=== PATIENT | female | born 1970 | race Caucasian/White ===

== ENCOUNTER 2020-02-05 10:50 | Outpatient (CLI) | payer BC, SELFPAY ==
--- NOTE | ~2020-02-05 | XR_ITS ---
XR foot LT min 3V DATE: 02/05/2020 11:16 INDICATION: Left foot pain, swelling TECHNIQUE: 4 views COMPARISON: None FINDINGS: Mild hallux valgus and bunion deformity. Mild osteoarthritis at the first metatarsophalangeal joint. No fracture, dislocation, periosteal reaction or bone destruction IMPRESSION: Mild hallux valgus and bunion deformity Mild osteoarthritis at the first metatarsophalangeal joint Reviewed, dictated and finalized at location B. N I FARMWORKER
== END 2020-02-05 10:51 | disposition home or self-care (01) ==
PROVIDERS: PCP Family Medicine; Visit Provider Physician Assistant
DX: M19.072 Primary osteoarthritis, left ankle and foot (principal); M20.12 Hallux valgus (acquired), left foot
CPT/HCPCS: 73630

== ENCOUNTER 2020-03-04 01:51 | Outpatient (CLI) | payer BC, SELFPAY ==
[2020-03-04 20:00] LABS: SARS-CoV-2 RNA PCR Negative
== END 2020-03-04 01:52 | disposition home or self-care (01) ==
LOC: ANHCOVIDDT 01:51
PROVIDERS: PCP Family Medicine; Visit Provider Internal Medicine Gastroenterology
DX: Z01.812 Encounter for preprocedural laboratory examination (principal); Z20.828 Contact with and (suspected) exposure to other viral communicable diseases
CPT/HCPCS: 87635; C9803; U0003

== ENCOUNTER 2020-03-07 01:30 | Day surgery (SDC) | payer BC, SELFPAY ==
[2020-02-29 15:08] VITALS: BMI 45.1
--- NOTE | 2020-03-07 07:06 | WPDANESEPPF ---
Anes - Initial Pre Proc Eval Procedure: Operation Date: 03/07/20 08:00 Proposed Procedures p Screening Colonoscopy - Alvino Saavedra MD Date/Time: 03/07/20 07:06 Surgeon: Alvino Saavedra MD Pre Op Diagnosis: neoplasm screening, family hx colon CA Patient Data Age: 50 Gender: F Height: 1.65 m Weight: 119 kg Allergies Allergy/AdvReac Type Severity Reaction Status Date / Time naproxen Allergy Intermediate Unknown Verified 03/07/20 06:57 doxycycline Allergy Unknown Vomiting Verified 03/07/20 06:57 Penicillins Allergy Unknown unknown Verified 03/07/20 06:57 acetaminophen [From Vicodin] AdvReac Intermediate Vomiting Verified 03/07/20 06:57 hydrocodone [From Vicodin] AdvReac Intermediate Vomiting Verified 03/07/20 06:57 Home Medications Medication Instructions Recorded Confirmed Type sertraline 25 mg tablet 25 mg PO DAILY #90 tablet 01/18/20 02/29/20 Rx Patient hx anesthesia problems: none Family hx anesthesia problems: none PMFSH Past Medical History Medical History (Updated 03/07/20 @ 07:07 by Oli Lyman MD) Generalized anxiety disorder Morbid obesity with BMI of 40.0-44.9, adult Surgical History Surgical History Delivery by section (~1988) Delivery by section (~1996) History of bilateral tubal ligation (~1996) History of renal stent (~2004) History of stress incontinence procedure using tension free vaginal tape (~2007) Hx of cholecystectomy (~1999) Family History Family History Father Family history of glaucoma, Onset Age: 76 Hypertension Family history of elevated blood lipids, Onset Age: 76 Acute myocardial infarction, Onset Age: 76 Family history of malignant neoplasm of esophagus Diabetes mellitus Mother Hypertension Carcinoma of colon Diabetes mellitus Social History Social History Smoking status: Never smoker Alcohol intake: current Substance use type: does not use Living arrangements: with family Gender identity (if verbalized by the patient): Female Sexual Orientation (if Verbalized by the Patient): Straight or Heterosexual Spiritual care concerns: No Anes - Eval Final PreProcedure Day of Procedure 03/07/20 07:06 Patient weight: obese Heart: regular rate and rhythm Lungs: clear to auscultation and normal air movement Airway: Mallampati scale class II Neurological: alert and oriented Last oral intake: >/= 8 hours ASA classification: III Emergent: no Anesthetic plan: proceed Anesthesia type and monitoring: general GIVS Informed Consent: The patient's anesthetic plan and its attendant risks and benefits were discussed with the patient/family/POA. Questions were solicited and answers provided to the satisfaction of the patient/family/POA.
[2020-03-07] MEDS: LACTATED RINGERS 1,000 ML 150 ML IV CONT (07:08)
[2020-03-07 07:15] VITALS: BP 137/64; PULSE 71; RESP 18; TEMP 36.3; O2SAT 98
--- NOTE | 2020-03-07 07:53 | WPDGICN ---
Assessment and Plan Assessment and plan (1) Family history of colon cancer: Code(s): Z80.0 - Family history of malignant neoplasm of digestive organs Status: Acute Assessment and Plan: Patient's family history is significant that her mother had colon cancer for this reason colonoscopy will be performed today and is advised at least every 5 years in the future. Further recommendations may be given after endoscopy. GI Consult Note Consult date/time: 03/07/20 07:53 HPI: Shaila Pineda is a 50 year old female Presents for screening colonoscopy. Patient's family history is significant that her mother had colon cancer. Patient states that her own weight appetite bowel movements are normal. She denies abdominal pain. She has had no bleeding. She is unaware of any other family members that have had polyps. Patient presents today for colonoscopy. Review of Systems Review of Systems: All systems reviewed & are unremarkable except as noted in HPI and below PMFSH Past Medical History Medical History (Updated 03/07/20 @ 07:07 by Oli Lyman MD) Generalized anxiety disorder Morbid obesity with BMI of 40.0-44.9, adult Surgical History Surgical History Delivery by section (~1988) Delivery by section (~1996) History of bilateral tubal ligation (~1996) History of renal stent (~2004) History of stress incontinence procedure using tension free vaginal tape (~2007) Hx of cholecystectomy (~1999) Family History Family History Father Family history of glaucoma, Onset Age: 76 Hypertension Family history of elevated blood lipids, Onset Age: 76 Acute myocardial infarction, Onset Age: 76 Family history of malignant neoplasm of esophagus Diabetes mellitus Mother Hypertension Carcinoma of colon Diabetes mellitus Social History Social History Smoking status: Never smoker Alcohol intake: current Substance use type: does not use Living arrangements: with family Gender identity (if verbalized by the patient): Female Sexual Orientation (if Verbalized by the Patient): Straight or Heterosexual Spiritual care concerns: No Meds Home Medications and Allergies Home Medications Medication Instructions Recorded Confirmed Type sertraline 25 mg tablet 25 mg PO DAILY #90 tablet 01/18/20 02/29/20 Rx Allergies Allergy/AdvReac Type Severity Reaction Status Date / Time naproxen Allergy Intermediate Unknown Verified 03/07/20 06:57 doxycycline Allergy Unknown Vomiting Verified 03/07/20 06:57 Penicillins Allergy Unknown unknown Verified 03/07/20 06:57 acetaminophen [From Vicodin] AdvReac Intermediate Vomiting Verified 03/07/20 06:57 hydrocodone [From Vicodin] AdvReac Intermediate Vomiting Verified 03/07/20 06:57 Vital Signs Vital Signs - 24 hr 03/07/20 07:15 Temperature 97.3 F L Pulse Rate 71 Respiratory Rate 18 Blood Pressure 137/64 Pulse Oximetry 98 Exam Narrative: Exam Narrative: Physical exam reveals patient to be alert. Vital signs stable. HEENT exam is unremarkable. Lungs are clear to auscultation and percussion. Heart is without murmur or extra sounds. Abdominal exam bowel sounds are present soft nontender with no hepatosplenomegaly digital external rectal exam is normal.
[2020-03-07 08:14] VITALS: BP 84/45; PULSE 77; RESP 20; O2SAT 98
[2020-03-07 08:24] VITALS: BP 100/89; PULSE 77; RESP 19; O2SAT 98
[2020-03-07 08:34] VITALS: BP 106/76; PULSE 78; RESP 19; O2SAT 99
== END 2020-03-07 10:24 | disposition home or self-care (01) ==
PROVIDERS: PCP Family Medicine; Visit Provider Internal Medicine Gastroenterology
PROC: 0DJD8ZZ Inspection of Lower Intestinal Tract, Via Natural or Artificial Opening Endoscopic (ICD-10-PCS; CPT 45378; principal; 2020-03-07 08:00)
DX: Z12.11 Encounter for screening for malignant neoplasm of colon (principal); K64.8 Other hemorrhoids; Z80.0 Family history of malignant neoplasm of digestive organs; F41.1 Generalized anxiety disorder; E66.01 Morbid (severe) obesity due to excess calories; Z68.41 Body mass index [BMI] 40.0-44.9, adult
CPT/HCPCS: 45378; J2704; J7120

== ENCOUNTER 2020-04-23 10:29 | Outpatient (CLI) | payer BC, SELFPAY ==
--- NOTE | ~2020-04-23 | MR_ITS ---
EXAMINATION: MR ankle LT wo con DATE: 04/23/2020 11:28 INDICATION: Peroneal tendinopathy of left ankle. TECHNIQUE: Magnetic resonance imaging (MRI) of the left ankle was performed without intravenous contr ast. Sequences included sagittal PD-weighted FS FSE, sagittal PD-weighted FSE, coronal PD-weighted FS FSE, coronal PD-weighted FSE, axial PD-weighted FS FSE, and axial PD-weighted FSE. COMPARISON: Left foot radiographs 02/05/2020 FINDINGS: Medial ankle ligaments: The superficial and deep components of the deltoid ligament are intact. Lateral ankle ligaments: The anterior and posterior tibiofibular ligaments, calcaneofibular ligament, and anterior and posteri or tibiofibular ligaments are normal. Tendons: The medial and anterior ankle tendons are normal. There is mild peroneus longus tendinopathy. Magic-a ngle artifact obscures evaluation of distal peroneus brevis tendon. There is mild Achilles tendinopat hy. Plantar fascia: There is thickening of central band of plantar fascia, consistent with fasciitis. Bones/other: Bone alignment is normal. Talar dome is normal. There is mild osteoarthritis of calcaneocuboid joint. Fluid: There is no joint effusion. There is subcutaneous edema at the medial and lateral aspects of the ankl e. There is a 9 mm ganglion cyst dorsal to third and fourth metatarsals. IMPRESSION: 1. Mild peroneus longus tendinopathy. 2. 9 mm ganglion cyst dorsal to third and fourth metatarsals. 3. Mild osteoarthritis of calcaneocuboid joint. Reviewed, dictated and finalized at location A. GRADER
== END 2020-04-23 10:30 ==
PROVIDERS: PCP Family Medicine; Visit Provider Podiatrist Foot & Ankle Surgery
DX: M67.472 Ganglion, left ankle and foot (principal); M19.072 Primary osteoarthritis, left ankle and foot
CPT/HCPCS: 73721

== ENCOUNTER 2022-03-06 07:14 | Outpatient (CLI) | payer OTHER, SELFPAY ==
--- NOTE | ~2022-03-06 | MM_ITS ---
EXAMINATION: MM screening bart BI w nicholas HISTORY: Screening TECHNIQUE: Craniocaudal and mediolateral oblique 3-D tomosynthesis images were obtained and synthetic 2-D images were generated. CAD analysis was submitted and interpreted. COMPARISON: No prior mammogram is available for comparison at this institution. BREAST PARENCHYMAL COMPOSITION: There are scattered areas of fibroglandular density. FINDINGS: There is no mammographic evidence for malignancy in the right breast. There is a circumscri bed 9 mm mass in the upper central aspect of the left breast with a single associated punctate calcif ication. IMPRESSION: 1. Left breast mass in the upper central breast, middle third. 2. Additional mammographic views and possible breast ultrasound are recommended. BI-RADS Category 0: Incomplete: Needs additional imaging evaluation. Reviewed, dictated and finalized at location A. DRIVER IMPRESSION: 1. Left breast mass in the upper central breast, middle third. 2. Additional mammographic views and possible breast ultrasound are recommended . BI-RADS Category 0: Incomplete: Needs additional imaging evaluation.
== END 2022-03-06 07:15 | disposition home or self-care (01) ==
LOC: ANHIMG 07:15
PROVIDERS: PCP Family Medicine; Visit Provider Family Medicine
DX: Z12.31 Encounter for screening mammogram for malignant neoplasm of breast (principal); R92.8 Other abnormal and inconclusive findings on diagnostic imaging of breast
CPT/HCPCS: 77063; 77067

== ENCOUNTER 2022-03-21 12:03 | Outpatient (CLI) | payer OTHER, SELFPAY ==
[2022-03-21 14:30] LABS: Hepatitis B Surface Antigen Negative (Negative)
[2022-03-21 14:36] LABS: HAV RESULT Negative (Negative); Hepatitis B Core IgM Result Negative (Negative)
[2022-03-21 14:40] LABS: HIV 1/2 Ab P24 Ag Result Negative (Negative)
[2022-03-21 14:47] LABS: Hepatitis C Virus Antibody Negative (Negative)
== END 2022-03-21 12:04 | disposition home or self-care (01) ==
LOC: ANHGOSHLAB 12:52
PROVIDERS: PCP Family Medicine; Visit Provider Nurse Practitioner
DX: Z57.8 Occupational exposure to other risk factors (principal)
CPT/HCPCS: 36415; 80074; 86703; G0432

== ENCOUNTER 2022-03-29 13:41 | Outpatient (CLI) | payer OTHER, SELFPAY ==
--- NOTE | ~2022-03-29 | MMUS_ITS ---
EXAMINATION: MM diagnostic bart LT w nicholas, US breast LT limited HISTORY: Follow-up left breast mass TECHNIQUE: Additional 3-D tomosynthesis images of the left breast were performed and synthetic 2-D im ages were generated. CAD analysis was submitted and interpreted. High resolution left breast ultrasou nd was performed. COMPARISON: Comparison to multiple prior studies sequentially, with oldest reviewed study dated 06/2015. BREAST PARENCHYMAL COMPOSITION: Breast composed of scattered areas of fibroglandular density FINDINGS: MAMMOGRAPHIC FINDINGS: There is a 9 mm circumscribed mass in the upper central aspect of the left breast, middle third. Ther e are no suspicious calcifications or architectural distortion. ULTRASOUND: Limited left breast ultrasound: At 1:00, 7 cm from the nipple, there is an 8 mm simple cyst correspon ding to the mammographic abnormality. No suspicious sonographic abnormalities to suggest malignancy. IMPRESSION: 1. No evidence for malignancy in the left breast. Benign finding. 2. Routine yearly screening mammogram and regular clinical breast examination are recommended. BI-RADS Category 2: Benign finding(s). Reviewed, dictated and finalized at location A. MACHINE TENDER IMPRESSION: 1. No evidence for malignancy in the left breast. Benign finding. 2. Routine yearly screening mammogram and regular clinical breast examination a re recommended. BI-RADS Category 2: Benign finding(s).
== END 2022-03-29 13:42 | disposition home or self-care (01) ==
PROVIDERS: PCP Family Medicine; Visit Provider Nurse Practitioner
DX: R92.8 Other abnormal and inconclusive findings on diagnostic imaging of breast (principal)
CPT/HCPCS: 76642; 77061; 77065; G0279

== ENCOUNTER 2023-06-14 15:40 | Outpatient (CLI) | payer OTHER, SELFPAY ==
--- NOTE | ~2023-06-14 | MM_ITS ---
EXAMINATION: MM screening bart BI w nicholas HISTORY: Screening mammogram TECHNIQUE: Craniocaudal and mediolateral oblique 3-D tomosynthesis images were obtained and synthetic 2-D images were generated. CAD analysis was submitted and interpreted. COMPARISON: 03/29/2022 diagnostic left mammogram and limited left breast ultrasound 03/06/2022 01/15/2020 bilateral screening mammogram examinations BREAST PARENCHYMAL COMPOSITION: There are scattered areas of fibroglandular density. FINDINGS: There is no evidence of suspicious mass, calcification, or architectural distortion to sugg est malignancy in either breast. There has been no suspicious interval change. IMPRESSION: 1. No mammographic evidence of malignancy. 2. Recommend routine screening mammography in one year. BI-RADS Category 1: Negative Reviewed, dictated and finalized at location A.
== END 2023-06-14 15:41 ==
PROVIDERS: PCP Family Medicine; Visit Provider Family Medicine
DX: Z12.31 Encounter for screening mammogram for malignant neoplasm of breast (principal)
CPT/HCPCS: 77063; 77067

== ENCOUNTER 2024-06-26 14:10 | Outpatient (CLI) | payer OTHER, SELFPAY ==
--- NOTE | ~2024-06-26 | MM_ITS ---
EXAMINATION: MM screening bart BI w nicholas HISTORY: Screening TECHNIQUE: Craniocaudal and mediolateral oblique 3-D tomosynthesis images were obtained and synthetic 2-D images were generated. CAD analysis was submitted and interpreted. COMPARISON: Comparison to multiple prior studies sequentially, with oldest reviewed study dated 06/2015. BREAST PARENCHYMAL COMPOSITION: Not dense: There are scattered areas of fibroglandular density. FINDINGS: There is no evidence of suspicious mass, calcification, or architectural distortion to sugg est malignancy in either breast. There has been no suspicious interval change. IMPRESSION: 1. No mammographic evidence of malignancy. 2. Recommend routine screening mammography in one year. BI-RADS Category 1: Negative Reviewed, dictated and finalized at location A.
== END 2024-06-26 14:11 | disposition home or self-care (01) ==
LOC: MICIMG 14:11
PROVIDERS: PCP Family Medicine; Visit Provider Family Medicine
DX: Z12.31 Encounter for screening mammogram for malignant neoplasm of breast (principal)
CPT/HCPCS: 77063; 77067